=== PATIENT | female | born 1985 | race Caucasian/White ===

== ENCOUNTER 2023-05-28 15:05 | Emergency (ER) | payer OTHER, SELFPAY ==
--- NOTE | ~2023-05-28 | CT_ITS ---
EXAMINATION: CT ABDOMEN AND PELVIS WITH CONTRAST CLINICAL INFORMATION: Mid abdominal pain. COMPARISON: None available. TECHNIQUE: Multidetector volumetric images were obtained from the superior aspect of the liver through the pubic symphysis following administration 85 mL of Omnipaque 350 intravenous contrast. Sagittal and coronal reformatted images were obtained on the technologist's workstation. Oral contrast: No This CT examination was performed using dose optimization techniques as appropriate, variously including the following: *Automated exposure control *Adjustment of mA and/or kV according to patient size (this includes techniques or standardized protocols for targeted exams where dose is matched to indication/reason for exam; i.e. extremities or head) *Use of iterative reconstruction technique DLP: 839 mGy-cm FINDINGS: LUNG BASES: Hypoventilatory changes are present at both lung bases. LIVER, GALLBLADDER, AND BILIARY TREE: The liver is normal in size, shape, and attenuation. No focal hepatic lesion or biliary ductal dilatation is present. The gallbladder is unremarkable with no evidence of radiopaque gallstones, gallbladder wall thickening, or obvious pericholecystic inflammatory changes. PANCREAS: Unremarkable. SPLEEN: Remarkable for multi septated lobulated relatively well-circumscribed hypodense mass seen along the anterior superior medial subcapsular aspect of the spleen, measures approximately 3.9 x 3.8 x 3.3 cm at its maximum anteroposterior by transverse by craniocaudal dimension with mean Hounsfield value of 23 (see the abbott images). Note is also made of presence of a tiny punctate calcification and thin walled septae. The finding is consistent with a complicated cyst, of indeterminate etiology. ADRENAL GLANDS: Unremarkable. KIDNEYS AND URETERS: The kidneys are normal in size, shape, and attenuation. No hydronephrosis, hydroureter, or calculi seen. No perinephric stranding. BLADDER: Unremarkable. GASTROINTESTINAL TRACT: The small and large bowel are unremarkable. The appendix shows presence of appendicolith without any CT evidence of acute appendicitis. ABDOMINAL WALL: No significant hernia is appreciated. LYMPH NODES: Normal. VASCULAR: Retroaortic left renal vein. PELVIC VISCERA: Unilocular left hemipelvic hypodensity measuring approximately 2.8 x 2.6 cm, most consistent with enlarged follicle-containing left ovarian cyst. No evidence of any free fluid and/or free air. OSSEOUS STRUCTURES: Bilateral spondylolysis at L5 without evidence of any spondylolisthesis. CT/CT abdomen pelvis w IV con IMPRESSION: 1. Solitary 3.9 cm maximum dimension multi septated lobulated splenic cyst associated with tiny punctate calcification, or indeterminate etiology. There are no prior studies available for comparison. 2. Appendicolith without any CT features of superimposed acute appendicitis. 3. 2.8 cm unilocular left hemipelvic cyst, most consistent with enlarged follicle within the left ovary. 4. 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 Fleischner guidelines were followed.
[2023-05-28 15:21] VITALS: BP 118/76; PULSE 86; RESP 16; TEMP 36.9; O2SAT 99; BMI 25.7
[2023-05-28 15:54] LABS: MANUAL DIFF FLAG NO
[2023-05-28 15:56] LABS: Basophils Percent Auto 0.4 % (0-2); Eosinophils Absolute Auto 0.1 X10*3/uL (0.0-0.4); Eosinophils Percent Auto 0.8 % (0-4); Hematocrit 38.7 % (37.0-47.0); Hemoglobin 13.4 g/dl (12.0-16.0); Imm Gran Abs Auto 0.02 X10*3/uL (0.00-0.03); Imm Gran Pct Auto 0.3 % (0.0-0.4); Lymphocytes Absolute Auto 2.1 X10*3/uL (1.2-4.9); Lymphocytes Percent Auto 26.9 % (20-40); Mean Corpuscular HGB Conc 34.6 g/dl (31.0-35.0); Mean Corpuscular Hemoglobin 30.7 pg (27.0-33.0); Mean Corpuscular Volume 88.8 fL (80.0-98.0); Mean Platelet Volume 11.4 fL (9.4-12.3); Monocytes Absolute Auto 0.6 X10*3/uL (0.1-1.2); Monocytes Percent Auto 7.7 % (2-11); Neutrophils Absolute Auto 5.1 x10*3/uL (2.0-8.3); Neutrophils Percent Auto 63.9 % (45-73); Platelet Count 258 X10*3/uL (160-400); Red Blood Count 4.36 X10*6/uL (4.20-5.50); Red Cell Distribution Width 12.5 % (11.0-16.0); White Blood Count 7.9 X10*3/uL (4.8-10.8)
[2023-05-28 16:10] LABS: Alanine Aminotransferase 15 U/L (0-31); Albumin Level 4.1 g/dL (3.5-5.0); Alkaline Phosphatase 50 U/L (39-117); Anion Gap 10 (12-20); Aspartate Amino Transferase 10 U/L (5-31); Bilirubin Direct 0.2 mg/dL (0.0-0.5); Bilirubin Total 0.5 mg/dL (0.0-1.0); Blood Urea Nitrogen 16 mg/dL (9-16); Calcium 9.5 mg/dL (8.4-10.2); Carbon Dioxide 23 mmol/L (22-29); Chloride 111 mmol/L (96-108); Creatinine Clr Calc Pharmacy 92.4; Estimated Glomerular Filt Rate > 60; Glucose Random 94 mg/dL (60-115); Lipase 28 U/L (8-78); Magnesium 1.9 mg/dL (1.6-2.6); Potassium 3.8 mmol/L (3.3-5.1); Sodium 140 mmol/L (135-145); Total Protein 7.2 g/dL (6.5-8.0)
--- NOTE | 2023-05-28 16:23 | ED_ITS ---
HPI - General Adult General Chief complaint: Abdominal Pain Stated complaint: abd pain Time Seen by Provider: 05/28/23 16:13 Source: patient, RN notes reviewed and old records reviewed Mode of arrival: ambulatory Limitations: no limitations History of Present Illness HPI narrative: 37 year old female presents for evaluation of abdominal pain. Patient reports that she has had abdominal pain for last 5 days. Her pain is mostly left upper abdomen it does radiate to the mid abdomen She denies any nausea vomiting, diarrhea Her last bowel movement was earlier today, with small but ?normal. ? Denies any history abdominal surgeries Denies any fevers, chills He she rates her pain as 6/10 currently dull, on Tuesday she reports it was much more severe No other complaints or concerns at this time Related Data Previous Rx's Medication Instructions Recorded magnesium citrate 300 ml PO DAILY #296 mL 05/28/23 polyethylene glycol 3350 17 17 g PO DAILY 2 weeks #238 grams 05/28/23 gram/dose oral powder (Miralax) Allergies Allergy/AdvReac Type Severity Reaction Status Date / Time cefaclor Allergy Rash Verified 05/28/23 15:25 Review of Systems Constitutional: Constitutional: Reports as per HPI, Denies chills, Denies fatigue, Denies fever(s) and Denies headache(s) ENT: Denies headache(s) Cardiovascular: Cardiovascular: Denies chest pain and Denies dyspnea Respiratory: Respiratory: Denies cough and Denies dyspnea Gastrointestinal: Gastrointestinal: Reports abdominal pain, Denies constipation, Denies nausea and Denies vomiting Genitourinary: Genitourinary: Denies dysuria Neurologic: Denies headache(s) and Denies focal weakness Endocrine: Endocrine: Denies fatigue [facility] Social History Social History Alcohol intake: current Alcohol intake frequency: a few times a week Smoked in Last 30 Days: No Use of substances other than those prescribed or required for medical reasons: Yes Substance Use Type: Marijuana Substance Use Type Other:: infrequent THC gummies Advance Directives: No Advance Directives Information Provided: No Patient : No Physical Exam ED Vital Signs: Vital Signs - 24 hr 05/28/23 15:21 05/28/23 18:27 Temperature 98.4 F Pulse Rate 86 84 Respiratory Rate 16 18 Blood Pressure 118/76 114/71 Pulse Oximetry 99 100 Oxygen Delivery Method Room Air Room Air BMI result Body Mass Index 25.7 Const General: healthy appearing, comfortable, no acute distress, alert and awake Nutritional Appearance: well nourished Orientation/consciousness: patient oriented x3 HENMT Head: Yes normocephalic and Yes atraumatic Throat: Yes posterior oropharynx normal Eyes Eyelids: Yes eyelids normal Conjunctivae: conjunctivae normal Sclerae: sclerae normal Corneas: corneas normal Pupils: Equal, round and reactive pupils present EOM: EOMs intact bilaterally Neck Neck: Yes full ROM Resp Effort & Inspection: normal respiratory effort, able to speak in complete sentences, no audible wheezes and not labored Auscultation: clear to auscultation bilaterally Cardio Rate: regular rate Rhythm: regular rhythm GI Inspection: No distended Palpation (GI): Soft to palpation, not firm, Tenderness to palpation present (GI) in the LUQ and periumbilically, no guarding and not rigid Auscultation: normoactive bowel sounds Skin General skin exam: no rashes or lesions noted and elasticity normal Neuro General: patient oriented x3 Cranial nerves: Yes Equal, round and reactive pupils present and Yes Bilaterally intact EOM present Cognition (Neuro): normal cognition Extrem Other: Moving all extremities well without any obvious deformities Course Reevaluation(s) Reevaluation #1: I called tele Radiology and spoke to Dr. beckett who read the patient's CT imaging to discuss the findings of the splenic lesion. He felt the lesion was likely benign, could be congenital as the patient did not have any previous images for comparison. A could be a hemangioma. Less likely parasitic or trauma but did n ot appear malignant. I discussed this at length the patient. She denies any recent trauma. She does admit to travel outside the [place] to [place], [place], [place], [place] the last couple of years. She does not believe she has ever had a CT scan the abdomen pelvis for comparison. She was strongly advised to follow-up with her PCP. Time: 18:44 Medications Administered Discontinued Medications Generic Name Dose Route Start Last Admin Trade Name Freq PRN Reason Stop Dose Admin Iohexol 100 ml 05/28/23 17:27 05/28/23 17:28 Iohexol 350 Mg/Ml 100 Ml Infus..Btl IV 05/28/23 17:28 85 ml ONCE ONE Administration Medical Decision Making Medical Decision Making MDM Narrative: 37-year-old female who denies any past medical history presents for evaluation abdominal pain. Her labs are reassuring. She is tender on exam without guarding or rebound. Discussed% benefits of CT scan imaging with the patient who elected to proceed with imaging. She denies excessive alcohol abuse, lipase is normal, less likely pancreatitis. No nausea or vomiting would suggest gastroenteritis less likely. She denies any burning abdominal pain history of GERD, therefore peptic ulcer disease less likely. Differential Diagnosis Differential Diagnoses: The differential diagnosis associated with the presentation includes Abdominal pain Constipation Pancreatitis Biliary colic less likely Lab Data MDM Lab Attestation statement: I reviewed the patient's lab results. No leukocytosis a white count of 7.9. Normal hemoglobin hematocrit, normal platelet count. No left shift. Sodium normal at 140, potassium normal at 3.8, chloride slightly elevated to 111. CO2 normal at 23. BUN and creatinine within normal limits, LFTs within normal limits. 05/28/23 15:51 05/28/23 15:51 Labs: Lab Results 05/28/23 05/28/23 Range/Units 15:51 15:51 WBC 7.9 (4.8-10.8) X10*3/uL RBC 4.36 (4.20-5.50) X10*6/uL Hgb 13.4 (12.0-16.0) g/dl Hct 38.7 (37.0-47.0) % MCV 88.8 (80.0-98.0) fL MCH 30.7 (27.0-33.0) pg MCHC 34.6 (31.0-35.0) g/dl RDW 12.5 (11.0-16.0) % Plt Count 258 (160-400) X10*3/uL MPV 11.4 (9.4-12.3) fL Immature Gran % (Auto) 0.3 (0.0-0.4) % Neut % (Auto) 63.9 (45-73) % Lymph % (Auto) 26.9 (20-40) % [place] % (Auto) 7.7 (2-11) % Eos % (Auto) 0.8 (0-4) % Baso % (Auto) 0.4 (0-2) % Lymph # (Auto) 2.1 (1.2-4.9) X10*3/uL [place] # (Auto) 0.6 (0.1-1.2) X10*3/uL Eos # (Auto) 0.1 (0.0-0.4) X10*3/uL Baso # (Auto) 0.0 (0.0-0.2) X10*3/uL Abs Immat Gran (auto) 0.02 (0.00-0.03) X10*3/uL Absolute Neuts (auto) 5.1 (2.0-8.3) x10*3/uL Absolute Nucleated RBC 0.000 (0.0-0.012) X10*3/uL Nucleated RBC % (auto) 0.0 (0.0-0.2) /100WBC Sodium 140 (135-145) mmol/L Potassium 3.8 (3.3-5.1) mmol/L Chloride 111 H (96-108) mmol/L Carbon Dioxide 23 (22-29) mmol/L Anion Gap 10 L (12-20) BUN 16 (9-16) mg/dL Creatinine 0.79 (0.5-1.4) mg/dL Estim Creat Clear Calc 92.4 Estimated GFR > 60 Random Glucose 94 (60-115) mg/dL Calcium 9.5 (8.4-10.2) mg/dL Magnesium 1.9 (1.6-2.6) mg/dL Total Bilirubin 0.5 (0.0-1.0) mg/dL Direct Bilirubin 0.2 (0.0-0.5) mg/dL AST 10 (5-31) U/L ALT 15 (0-31) U/L Alkaline Phosphatase 50 (39-117) U/L Total Protein 7.2 (6.5-8.0) g/dL Albumin 4.1 (3.5-5.0) g/dL Lipase 28 (8-78) U/L Beta HCG, Quant < 2 mIU/mL Independent Interpretation Interpretation: Agree with Radiology interpretation. Also updo-on-[id number] constipation Radiology Impression Discussion of test interpretation with radiology: I have reviewed the radiologist's reading. Radiologist Impression: 3.9 cm cystic lesion in the spleen. Left ovarian cyst Discharge Plan Discharge Clinical Impression: Abdominal pain, Constipation, Cyst of spleen Patient Disposition: Home, Self-Care Instructions: Constipation (ED) Additional Instructions: Your blood work was very reassuring with no significant abnormalities. Your pain is most likely from a moderate degree of constipation Take MiraLax every day for the next 2 weeks Take magnesium citrate tomorrow to help facilitate bowel movement Increase fluid and fiber intake Your CT scan also showed a 3.9 cm cystic lesion in your spleen. I spoke to the radiologist who felt it did not appear malignant, but at this point it is still somewhat unclear what exactly it is. Talk to your doctor for follow-up. I f your pain does not improve after cleaning your bowels, you may benefit from MRI of the abdomen with IV contrast to better evaluate the cystic lesion in your spleen Prescriptions: New polyethylene glycol 3350 [Miralax] 17 gram/dose powder 17 g PO DAILY 14 Days Qty: 238 0RF magnesium citrate Solution 300 ml PO DAILY Qty: 296 0RF
[2023-05-28 16:57] LABS: HCG Quantitative < 2 mIU/mL
[2023-05-28] MEDS: iohexoL 350 MG/ML 100 ML INFUS..BTL IV (17:28)
[2023-05-28 18:27] VITALS: BP 114/71; PULSE 84; RESP 18; O2SAT 100
== END 2023-05-28 18:52 | disposition home or self-care (01) ==
PROVIDERS: Emergency Medicine; Physician Assistant; Emergency Provider Emergency Medicine
DX: K59.00 Constipation, unspecified (principal); D73.4 Cyst of spleen; N83.202 Unspecified ovarian cyst, left side; R10.12 Left upper quadrant pain
CPT/HCPCS: 36415; 74177; 80048; 80076; 83690; 83735; 84702; 85025; 99284; Q9967